=== PATIENT | female | born 1995 | race Two or more races ===

== ENCOUNTER 2025-01-28 21:07 | Emergency (ER) | payer MEDICAID, OTHER ==
[~2025-01-28] VITALS: Ht 170.2 cm; Wt 69.4 kg
[2025-01-28 22:04] VITALS: BP 115/83; PULSE 79; RESP 16; TEMP 98.7; O2SAT 99
[2025-01-28 22:35] LABS: Urine Bacteria FEW /hpf (None Seen); Urine Blood 2+ /uL (Negative); Urine Clarity Turbid (Clear); Urine Color Light-Yellow (Yellow); Urine Mucus FEW (None Seen); Urine Protein, UAD TRACE (Negative); Urine Specific Gravity 1.018 (1.001-1.035); Urine Squamous Epithelial Cell FEW /hpf (<5); Urine Urobilinogen Normal (Negative); Urine WBC 118 /HPF (0-5)
[2025-01-28] MEDS ORDERED: ACET500T58 PO (22:44)
[2025-01-28] MEDS ORDERED: BACDST PO (22:44)
--- NOTE | 2025-01-28 22:44 | ED.PDOC ---
General HPI Comments 29-YEAR-OLD FEMALE PRESENTS TO ER WITH URINARY COMPLAINT TIMES FOUR DAYS. PATIENT REPORTS THAT SHE HAS BEEN EXPERIENCING INCREASE IN URINATION ALONG WITH 8/10 LOWER BACK PAIN 8/10 PELVIC PRESSURE X FOUR DAYS. STATES SHE HAS HAD SIMILAR SYMPTOMS IN THE PAST RELATED TO A URINARY TRACT INFECTION AND NOTES THAT SHE LAST TOOK [id number] TYLENOL 6:00 P.M. PRIOR TO ARRIVAL TO ER WITH SLIGHT RELIEF. PATIENT PRESENTS TO ER AMBULATORY ON ARRIVAL, WITH STEADY GAIT, IN NO DISTRESS WITH VITALS STABLE. DENIES FEVER, BODY ACHES, CHILLS, NIGHT SWEATS, ABDOMINAL PAIN, FURTHER CHANGES IN URINATION OR ANY FURTHER SYMPTOMS/COMPLAINTS Chief Complaint: Urinary Time Seen by MD: 21:13 Primary Care Provider: UNKNOWN Reviewed notes: Nurses Notes, Medications, Allergies Allergies: Coded Allergies: NO KNOWN ALLERGIES (Unverified , 01/28/25) Home Meds Active Scripts Sulfamethoxazole W/Trimethopri (Bactrim Ds Tablet) 1 Tab Tb, 1 TAB PO BID for 7 Days, #14 TAB 0 Refills Prov:SURAJ ARREDONDO 01/28/25 Acetaminophen (Acetaminophen) 500 Mg Tab, 500 MG PO Q4HPRN, #30 TAB 0 Refills Prov:SURAJ ARREDONDO 01/28/25 Information Source: Patient Mode of Arrival: Ambulatory Past Medical History PAST MEDICAL HISTORY: UTI'S Surgical History: Denies all surgeries Family History Family History: Unknown Social History Smoker: Non-Smoker Alcohol: Denies ETOH Use Drugs: Denies Drug Use Lives In: Home Constitutional: denies: chills, diaphoresis, fatigue, fever, malaise, sweats, weakness, others EENTM: denies: blurred vision, double vision, ear bleeding, ear discharge, ear drainage, ear pain, ear ringing, eye pain, eye redness, hearing loss, mouth pain, mouth swelling, nasal discharge, nose bleeding, nose congestion, nose pain, photophobia, tearing, throat pain, throat swelling, voice changes, others Respiratory: denies: cough, hemoptysis, orthopnea, SOB at rest, shortness of breath, SOB with excertion, stridor, wheezing, others Cardiovascular: denies: chest pain, dizzy spells, diaphoresis, Dyspnea on exertion, edema, irregular heart beat, left arm pain, lightheadedness, palpitations, PND, syncope, others Gastrointestinal: denies: abdomen distended, abdominal pain, blood streaked bowels, constipated, diarrhea, dysphagia, difficulty swallowing, hematemesis, melena, nausea, poor appetite, poor fluid intake, rectal bleeding, rectal pain, vomiting, others Genitourinary: reports: others ( STATED IN HPI) Neurological: denies: dizziness, fainting, headache, left sided numbness, left sided weakness, numbness, paresthesia, pre-existing deficit, right sided numb ness, right sided weakness, seizure, speech problems, tingling, tremors, weakness, others Musculoskeletal: reports: others ( STATED IN HPI) Integumetry: denies: bruises, change in color, change in hair/nails, dryness, laceration, lesions, lumps, rash, wounds, others Allergic/Immunocompromised: denies: Difficulty Healing, Frequent Infections, Hives, Itching, others Hematologic/Lymphatic: denies: anemia, blood clots, easy bleeding, easy bruising, swollen glands, others Endocrine: denies: excessive hunger, excessive sweating, excessive thirst, excessive urination, flushing, intolerance to cold, intolerance to heat, unexplained weight gain, unexplained weight loss, others Psychiatric: denies: anxiety, bipolar disorder, depression, hopeless, panic disorder, schizophrenia, sleepless, suicidal, others Physical Exam General Appearance: No Apparent Distress HEENT: PERRL/EOMI Neck: Full Range of Motion, Non-Tender, Normal Respiratory: Chest Non-Tender, Lungs Clear, No Accessory Muscle Use, No Respiratory Distress, Normal Breath Sounds Cardiovascular: No Murmur, No Gallop, Regular Rate/Rhythm Breast Exam: Deferred Gastrointestinal: Non Tender, No Pulsatile Mass, Soft Genitalia: Deferred Pelvic: Deferred Rectal: Deferred Extremities: Normal capillary refill, Normal range of motion Musculoskeletal : Extremity Location: Back (SLIGHT TTP TO LEFT LOWER LUMBAR REGION NOTED. NO TTP TO BILATERAL FLANKS OR CVA TENDERNESS NOTED BILATERALLY) Neurologic: Alert, community engagement coordinator II-XII nml as Tested, No Motor Deficits, Normal Affect, Normal Mood, No Sensory Deficits Cerebellar Function: Normal Reflexes: Normal Skin: Dry, Normal Color, Warm Lymphatic: No Adenopathy Was a procedure done? Was a procedure done?: No Sedation Sedation?: No Differential Diagnosis Kidney stone (Female): N/A Urinary Problem (Female): Intrauterine , Pyelonephritis, Urinary retention, Urolithiasis X-Ray, Labs, Meds, VS Vital Signs Date Time Temp Pulse Resp B/P (MAP) Pulse Ox O2 Delivery O2 Flow Rate FiO2 01/28/25 22:04 79 16 99 Room Air 01/28/25 22:04 98.7 79 16 115/83 (94) 99 98.7 01/28/25 21:31 98.7 79 16 115/83 (94) 99 98.7 Lab Test 01/28/25 21:42 Range/Units Urine Color Light-yellow Yellow Urine Clarity Turbid H Clear Urine pH 7.0 5.0-9.0 Urine Specific [place] 1.018 1.001-1.035 Urine Protein Trace H Negative Urine Ketones Negative Negative Urine Blood 2+ H Negative /uL Urine Nitrite Negative Negative Urine Bilirubin Negative Negative Urine Urobilinogen Normal Negative mg/dL Urine Leukocyte Esterase 3+ Negative /uL Urine RBC 153 0 - 4 /hpf Urine Microscopic WBC 118 H 0-5 /HPF Urine Squamous Epithelial Cells Few <5 /hpf Urine Bacteria Few H None Seen /hpf Urine Mucus Few None Seen Urine Glucose Normal Normal mg/dL Urine Test Negative Negative URINALYSIS REVIEWED-URINE LEUKOCYTE ESTERASE 3+, URINE BLOOD 2+, URINE NITRITES NEGATIVE URINE REVIEWED-NEGATIVE ROCEPHIN 1 G IM ORDERED PATIENT IN NO DISTRESS PRIOR TO DISCHARGE ADVISED TO DRINK PLENTY OF FLUIDS ADVISED TO FOLLOW UP WITH PCP IN 1-2 DAYS PATIENT VERBALIZED UNDERSTANDING AND AGREEABLE WITH CURRENT PLAN OF CARE ADVISED TO RETURN TO ER IMMEDIATELY IF SYMPTOMS WORSEN Time of 1ST Reevaluation: 22:20 Reevaluation 1ST: N/A Patient Education/Counseling: Diagnosis, Treatment, Prognosis, Need For Follow Up Family Education/Counseling: No Family Present Departure 1 Departure Time of Disposition: 22:42 Impression: Primary Impression: UTI (urinary tract infection) Qualified Codes: N30.01 - Acute cystitis with hematuria Disposition: HOME / SELF CARE / HOMELESS Condition: Stable e-Prescriptions Sulfamethoxazole W/Trimethopri (Bactrim Ds Tablet) 1 Tab Tb 1 TAB PO BID for 7 Days, #14 TAB 0 Refills Prov: SURAJ ARREDONDO 01/28/25 Acetaminophen (Acetaminophen) 500 Mg Tab 500 MG PO Q4HPRN, #30 TAB 0 Refills Prov: SURAJ ARREDONDO 01/28/25 Discharged With: Self Critical Care Note Critical Care Time?: No Stability Stability form required: No Heart Score Heart Score: Heart Score Response (Comments) Value History N/A 0 EKG N/A 0 Age N/A 0 Risk Factors N/A 0 Troponin N/A 0 Total 0 SURAJ ARREDONDO January 28, 2025 22:44
[2025-01-28] MEDS: cefTRIAXone SOD 1,000 MG VL IM ONE (23:06)
== END 2025-01-28 23:14 | disposition home or self-care (01) ==
LOC: ER 21:07
DX: N39.0 Urinary tract infection, site not specified (principal); Z32.02 Encounter for pregnancy test, result negative
CPT/HCPCS: 81001; 81025; 96372; 99283; J0696